=== PATIENT | female | born 1965 | race Hispanic/Latino ===

== ENCOUNTER 2016-10-10 12:54 | Emergency (ER) | payer BC ==
[2016-10-10 12:54] VITALS: BMI 23.5
[2016-10-10 13:14] VITALS: RESP 16; TEMP 97.9
--- NOTE | 2016-10-10 13:40 | ED PDOC ---
Arrival/HPI - General Chief Complaint: Finger,Hand,&Wrist Time Seen by Provider: 10/10/16 13:37 Historian: Patient - History of Present Illness Narrative History of Present Illness (Text): 10/10/16 13:35 This 51 yo female presents to this ED c/o right hand injury x 10 days. Patient stated [place] the [place], she tripped and fell down. Patient stated right hand was swollen Time/Duration: Other (10 days) Context: Other (park) Past Medical History - Provider Review Nursing Documentation Reviewed: Yes - Infectious Disease Hx of Infectious Diseases: None - Tetanus Immunization Tetanus Immunization: Unknown - Past Medical History Past Medical History: No Previous - Cardiac Hx Cardiac Disorders: No - Pulmonary Hx Respiratory Disorders: No (MASTOID SINUSITIS) - Neurological Hx Neurological Disorder: Yes Other/Comment: Ct of head cerebral atropy - HEENT Hx HEENT Disorder: Yes (otitis media) Other/Comment: + lrft satya media +mastoid sinusitis - Renal Hx Renal Disorder: No - Endocrine/Metabolic Hx Endocrine Disorders: No - Hematological/Oncological Hx Blood Disorders: Yes Hx Anemia: Yes (hx OF BLOOD TRANSFUSION) - Integumentary Hx Dermatological Disorder: No - Musculoskeletal/Rheumatological Hx Musculoskeletal Disorders: Yes Hx Falls: No Hx Fractures: Yes (R ARM) Other/Comment: hx rib fx hx r arm sx HX L knee sx - Gastrointestinal Hx Gastrointestinal Disorders: No - Genitourinary/Gynecological Hx Genitourinary Disorders: No - Psychiatric Hx Psychophysiologic Disorder: Yes (INSOMNIA) Hx Anxiety: Yes Hx Depression: Yes Hx Hallucinations: Yes Hx Substance Use: No - Surgical History Hx Orthopedic Surgery: Yes (left knee sx) Other/Comment: b/l knee replacement. - Anesthesia Hx Anesthesia Reactions: No Hx Malignant Hyperthermia: No - Suicidal Assessment Feels Threatened In Home Enviroment: No Family/Social History - Physician Review Nursing Documentation Reviewed: Yes Family/Social History: No Known Family HX Smoking Status: Never Smoked Hx Alcohol Use: No Hx Substance Use: No Hx Substance Use Treatment: No Allergies/Home Meds Allergies/Adverse Reactions: Allergies codeine Allergy (Verified 10/10/16 13:14) ITCHING Home Medications: Home Meds Medication Instructions Recorded Confirmed ALPRAZolam [Xanax] 1 mg PO PRN PRN 10/10/16 10/10/16 Review of Systems - Review of Systems Constitutional: Normal. absent: Fatigue, Weight Change, Fevers Eyes: Normal ENT: Normal Respiratory: Normal. absent: SOB, Cough Cardiovascular: Normal. absent: Chest Pain, Palpitations Gastrointestinal: Normal. absent: Abdominal Pain, Nausea, Vomiting Genitourinary Female: Normal. absent: Dysuria, Frequency, Hematuria Musculoskeletal: Other (right hand ) Skin: Normal Neurological: Normal Endocrine: Normal Hemo/Lymphatic: Normal Psychiatric: Normal Physical Exam Vital Signs Temp Pulse Resp BP Pulse Ox 10/10/16 13:09 97.9 F 83 16 136/85 100 Medical Decision Making ED Course and Treatment: 10/10/16 14:27 Patient was asking for stronger pain medication like Tramadol or Percocet 10/10/16 14:39 I reviewed [place] [employer] which demonstrates patient is on pain management care for her chronic pain. Patient later admitted she see a pain management doctor Re-evaluation Time: 14:27 Reassessment Condition: Re-examined, Improved - RAD Interpretation Narrative RAD Interpretations (Text): 10/10/16 14:27 Accession No. : [id number] Patient Name / ID : AGUILAR LEWIS / [id number] Exam Date : 10/10/2016 13:44:49 ( Approved ) Study Comment : Sex / Age : F / 51Y Creator : Corrina Gallo V. Dictator : Corrina Gallo V. Lead Former : Reproducer : Corrina Gallo V. Approver2 : Report Date : 10/10/2016 14:07:52 My Comment : PROCEDURE: Right Hand Radiographs. HISTORY: pain COMPARISON: None. FINDINGS: BONES: No fracture seen.A well corticated ossification borders the volar and radial aspect of the 1st carpal metacarpal joint ossific debris or old osseous avulsion are considerations. Prominent osteophytosis of the trapezium between the 1st and 2nd metacarpal is suggested additional probable ossific debris 1 mm is seen on the frontal view non oblique view ulnar aspect 1st metacarpal base. Patient's pain is lateral aspect JOINTS: First carpal metacarpal osteoarthritic changes. Ossific debris versus old osseous avulsions here noted SOFT TISSUES: Mild soft tissue prominence just distal to the ulnar styloid OTHER FINDINGS: Although not mentioned on the prior wrist x-ray report -ulnar variance appears neutral IMPRESSION: No acute fracture. . 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 Nonspecific soft tissue swelling and increased density test distal to the ulnar styloid Radiology Orders: 10/10/16 13:38 HAND RIGHT 3 VIEWS [RAD] Stat WRIST, RIGHT 3 VIEWS [RAD] Stat - Medication Orders Current Medication Orders: Discontinued Medications Acetaminophen (Tylenol 325mg Tab) 650 mg PO STAT STA Stop: 10/10/16 13:39 Last Admin: 10/10/16 13:53 Dose: 650 mg - Procedure PROCEDURE NOTE (Text): 10/10/16 14:41 thumb spika pre-made splint was placed by me. n/v intact, capillary refill < 2 sec Disposition/Present on Arrival - Present on Arrival Any Indicators Present on Arrival: No History of DVT/PE: No History of Uncontrolled Diabetes: No Urinary Catheter: No History of Decub. Ulcer: No History Surgical Site Infection Following: None - Disposition Have Diagnosis and Disposition been Completed?: Yes Diagnosis: Strain of thumb, right, Drug-seeking behavior Disposition: HOME/ ROUTINE Disposition Time: 14:27 Patient Plan: Discharge Patient Problems: Current Active Problems Problem Status Onset Strain of thumb, right Acute Condition: GOOD Discharge Instructions (ExitCare): Finger Sprain (ED) Additional Instructions: Call private doctor or clinic for follow up visit in 1-2 days. Take medication as instructed. Return to emergency if symptoms worsen. Referrals: PCP,NO [Primary Care Provider] - Follow up with primary Sirena Kebede MD [Staff Provider] - Follow up with primary Forms: [employer] ([place])
--- NOTE | 2016-10-10 14:03 | RAD ---
PROCEDURE: Right Wrist Radiographs. HISTORY: pain COMPARISON: None. FINDINGS: BONES: No fracture seen A well corticated ossification borders the volar and radial aspect of the 1st carpal metacarpal joint ossific debris or old osseous avulsion are considerations. Prominent osteophytosis of the trapezium between the 1st and 2nd metacarpal is suggested additional probable ossific debris 1 mm is seen on the frontal view non oblique view ulnar aspect 1st metacarpal base. Patient's pain is lateral aspect JOINTS: First carpal metacarpal joint hypertrophic arthrosis. Trapezium intraosseous and subcortical cystic changes noted SOFT TISSUES: Mild soft tissue prominence overlying the ulnar styloid. -mostly just distal to it No ulnar styloid fracture OTHER FINDINGS: None. IMPRESSION: No acute fracture First carpal metacarpal joint arthrosis. Ossific debris versus tiny old chip osseous avulsions. Lateral mild soft tissue swelling/increased density mostly distal to the ulnar styloid
--- NOTE | 2016-10-10 14:10 | RAD ---
PROCEDURE: Right Hand Radiographs. HISTORY: pain COMPARISON: None. FINDINGS: BONES: No fracture seen.A well corticated ossification borders the volar and radial aspect of the 1st carpal metacarpal joint ossific debris or old osseous avulsion are considerations. Prominent osteophytosis of the trapezium between the 1st and 2nd metacarpal is suggested additional probable ossific debris 1 mm is seen on the frontal view non oblique view ulnar aspect 1st metacarpal base. Patient's pain is lateral aspect JOINTS: First carpal metacarpal osteoarthritic changes. Ossific debris versus old osseous avulsions here noted SOFT TISSUES: Mild soft tissue prominence just distal to the ulnar styloid OTHER FINDINGS: Although not mentioned on the prior wrist x-ray report -ulnar variance appears neutral IMPRESSION: No acute fracture. . 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 Nonspecific soft tissue swelling and increased density test distal to the ulnar styloid
[2016-10-10 16:33] VITALS: BP 129/88; PULSE 76; O2SAT 99
== END 2016-10-10 14:35 | disposition home or self-care (01) ==
LOC: ED 12:54
DX: S66.211A Strain of extensor muscle, fascia and tendon of right thumb at wrist and hand level, initial encounter (principal); W01.0XXA Fall on same level from slipping, tripping and stumbling without subsequent striking against object, initial encounter; Y93.01 Activity, walking, marching and hiking; Y92.830 Public park as the place of occurrence of the external cause; Z76.5 Malingerer [conscious simulation]